=== PATIENT | male | born 1940 | race Caucasian/White ===

== ENCOUNTER 2017-11-20 16:47 | Inpatient (IN) ==
[2017-11-20] MEDS ORDERED: guaiFENesin/DM ER 600-30 MG TABLET PO PRN (17:03)
[2017-11-20] MEDS ORDERED: POTASSIUM CHLORIDE 20 MEQ TABLET PO PRN (17:03)
[2017-11-20] MEDS ORDERED: ACETAMINOPHEN 325 MG TABLET PO PRN (17:03)
[2017-11-20] MEDS ORDERED: ONDANSETRON 4 MG/2 ML VIAL IV PRN (17:03)
[2017-11-20] MEDS ORDERED: BISACODYL 5 MG TABLET PO PRN (17:03)
[2017-11-20] MEDS ORDERED: MAGNESIUM SULF RIDER 4 GM in PREMIX 1 EACH IV PRN (17:03)
[2017-11-20] MEDS ORDERED: MAGNESIUM SULF RIDER 2 GM in PREMIX 1 EACH IV PRN (17:03)
[2017-11-20] MEDS ORDERED: ZALEPLON 5 MG CAPSULE PO PRN (17:03)
[2017-11-20] MEDS ORDERED: NITROGLYCERIN SL 0.4 MG TABLET SL PRN (17:09)
[2017-11-20 21:42] LABS: Basophils % 0.6 % (0.0-0.8); Eosinophils # 0.3 10*3/uL (0.0-0.87); Eosinophils % 4.4 % (0.00-10.9); Hematocrit 35.1 VOL% (42.0-52.0); Hemoglobin 11.4 GM/DL (14.0-18.0); Immature Granulocytes % 0.3 %; Immature Granulocytes Absolute 0.02 #; Lymphocytes # 1.8 10*3/uL (1.4-4.0); Mean Corpuscular HGB Conc 32.5 GM/DL (32-36); Mean Corpuscular Hemoglobin 30 PG (27-34); Mean Corpuscular Volume 91.9 FL (87-102); Mean Platelet Volume 10.5 FL (9.6-12.0); Monocytes # 0.6 10*3/uL (0.11-0.8); Monocytes % 8.7 % (1.7-12.7); Neutrophils # 3.8 10*3/uL (1.4-7.4); Platelet Count 160 T/CUMM (130-400); Red Blood Count 3.82 MC/CUMM (3.8-5.5); Red Cell Distribution Width 14.6 % (9.3-17.3); White Blood Count 6.6 T/CUMM (4-12)
[2017-11-20] MEDS: INSULIN REGULAR 100 UNIT/ML SUBCUT SCH (21:44)
[2017-11-20 21:52] LABS: PT Patient Result 10.4 SECS; Partial Thromboplastin Time 26.3 SECS (0-40)
[2017-11-20 22:07] LABS: Alanine Aminotransferase 21 U/L (16-61); Albumin 3.2 G/DL (3.4-5.0); Alkaline Phosphatase 105 U/L (45-117); Aspartate Amino Transferase 12 U/L (0-37); Bilirubin,Total < 0.39 MG/DL (0.2-1.0); Blood Urea Nitrogen 34 MG/DL (7-18); Calcium 8.8 MG/DL (8.5-10.1); Glucose 278 MG/DL (74-106); Osmolality,Calculated 296.4 MOS/KG (273-304); Potassium 4.7 MMOL/L (3.5-5.1); Sodium 140 MMOL/L (136-145); Total Protein 5.9 G/DL (6.4-8.3)
[2017-11-21 06:14] LABS: Basophils % 0.6 % (0.0-0.8); Eosinophils # 0.4 10*3/uL (0.0-0.87); Eosinophils % 5.9 % (0.00-10.9); Hematocrit 34.6 VOL% (42.0-52.0); Hemoglobin 11.7 GM/DL (14.0-18.0); Immature Granulocytes % 0.3 %; Immature Granulocytes Absolute 0.02 #; Lymphocytes # 1.8 10*3/uL (1.4-4.0); Lymphocytes % 28.6 % (21.2-54.2); Mean Corpuscular HGB Conc 33.8 GM/DL (32-36); Mean Corpuscular Hemoglobin 30 PG (27-34); Mean Corpuscular Volume 89.6 FL (87-102); Mean Platelet Volume 11.1 FL (9.6-12.0); Monocytes # 0.6 10*3/uL (0.11-0.8); Monocytes % 9.1 % (1.7-12.7); Neutrophils # 3.5 10*3/uL (1.4-7.4); Neutrophils % 55.5 % (38.7-73.9); Platelet Count 176 T/CUMM (130-400); Red Blood Count 3.86 MC/CUMM (3.8-5.5); Red Cell Distribution Width 14.6 % (9.3-17.3); White Blood Count 6.2 T/CUMM (4-12)
[2017-11-21 06:51] LABS: Calcium 8.9 MG/DL (8.5-10.1); Osmolality,Calculated 290.5 MOS/KG (273-304); Potassium 4.6 MMOL/L (3.5-5.1); Risk Ratio 3.83; VLDL CHOLESTEROL 30.6 MG/DL
[2017-11-21] MEDS ORDERED: ceFAZolin 1,000 MG in SYRINGE 1 EACH IV ONE (07:59)
[2017-11-21] MEDS ORDERED: ceFAZolin 1,000 MG VIAL IRRIG ONE (07:59)
[2017-11-21] MEDS ORDERED: PANTOPRAZOLE 40 MG TABLET PO SCH (09:00)
[2017-11-21] MEDS ORDERED: ASPIRIN EC 81 MG TABLET PO SCH (09:00)
[2017-11-21] MEDS ORDERED: NITROGLYCERIN SL 0.4 MG TABLET SL PRN (09:02)
[2017-11-21] MEDS: INSULIN REGULAR 100 UNIT/ML SUBCUT SCH ×4 (09:04→21:55)
[2017-11-21] MEDS ORDERED: LIDOCAINE 1% 20 ML VIAL ONE (09:32)
[2017-11-21] MEDS ORDERED: HEPARIN/NACL 0.9% 2 UNITS/ML 500 ML IV ONE (09:32)
[2017-11-21] MEDS ORDERED: ceFAZolin 1,000 MG VIAL ONE (09:33)
[2017-11-21] MEDS ORDERED: LABETALOL 20 MG/4 ML SYRINGE IV ONE ×2 (09:54→11:33)
[2017-11-21] MEDS ORDERED: TISSUE ADHESIVE 1 EACH APPLICATOR TOP ONE (10:38)
[2017-11-21] MEDS ORDERED: oxyCODONE/ACETAMINOPHEN 5-325 MG TABLET PO PRN (10:58)
[2017-11-21] MEDS ORDERED: DEXTROSE 50% 25 GM/50 ML VIAL IV PRN (10:58)
[2017-11-21] MEDS ORDERED: GLUCAGON 1 MG VIAL IM PRN (10:58)
[2017-11-21] MEDS ORDERED: PROPOFOL 200 MG/20 ML VIAL IV ONE (11:33)
[2017-11-21] MEDS ORDERED: ePHEDrine 50 MG/ML AMP ONE (11:33)
[2017-11-21] MEDS ORDERED: FUROSEMIDE 20 MG/2 ML VIAL ONE (11:34)
[2017-11-21] MEDS ORDERED: METOPROLOL TARTRATE 5 MG/5 ML VIAL IV ONE (11:34)
[2017-11-21] MEDS ORDERED: ESMOLOL 100 MG/10 ML VIAL IV ONE (11:34)
[2017-11-21] MEDS ORDERED: ETOMIDATE 40 MG/20 ML VIAL IV ONE (11:34)
[2017-11-21] MEDS ORDERED: LACTATED RINGERS 1,000 ML IV ONE (11:34)
[2017-11-21] MEDS ORDERED: INSULIN NPH/REGULAR 70/30 100 UNIT/ML SUBCUT SCH (16:30)
[2017-11-21] MEDS ORDERED: LOVASTATIN 20 MG TABLET PO SCH (16:30)
[2017-11-21] MEDS: ceFAZolin 1,000 MG in SYRINGE 1 EACH IV SCH (18:10)
[2017-11-21] MEDS ORDERED: TERAZOSIN 5 MG CAPSULE PO SCH (21:00)
[2017-11-21] MEDS ORDERED: CETIRIZINE 10 MG TABLET PO SCH (21:00)
[2017-11-21] MEDS: METOPROLOL SUCCINATE XL 25 MG TABLET PO SCH (21:54)
[2017-11-21] MEDS: IRON (CARBONYL) 45 MG TABLET PO SCH (21:55)
[2017-11-21] MEDS: MAGNESIUM CHLORIDE 64 MG TABLET PO SCH (21:55)
[2017-11-21] MEDS: FAMOTIDINE 20 MG TABLET PO SCH (21:55)
[2017-11-22] MEDS: ceFAZolin 1,000 MG in SYRINGE 1 EACH IV SCH (01:14)
[2017-11-22 05:24] LABS: Basophils % 0.5 % (0.0-0.8); Eosinophils # 0.3 10*3/uL (0.0-0.87); Eosinophils % 3.1 % (0.00-10.9); Hematocrit 34.2 VOL% (42.0-52.0); Hemoglobin 11.5 GM/DL (14.0-18.0); Immature Granulocytes % 0.6 %; Immature Granulocytes Absolute 0.05 #; Lymphocytes # 1.5 10*3/uL (1.4-4.0); Lymphocytes % 17.6 % (21.2-54.2); Mean Corpuscular HGB Conc 33.6 GM/DL (32-36); Mean Corpuscular Hemoglobin 30 PG (27-34); Mean Corpuscular Volume 89.5 FL (87-102); Mean Platelet Volume 10.6 FL (9.6-12.0); Monocytes # 0.8 10*3/uL (0.11-0.8); Monocytes % 9.8 % (1.7-12.7); Neutrophils # 5.7 10*3/uL (1.4-7.4); Neutrophils % 68.4 % (38.7-73.9); Platelet Count 161 T/CUMM (130-400); Red Blood Count 3.82 MC/CUMM (3.8-5.5); Red Cell Distribution Width 14.7 % (9.3-17.3); White Blood Count 8.3 T/CUMM (4-12)
[2017-11-22 06:02] LABS: Calcium 8.7 MG/DL (8.5-10.1); Osmolality,Calculated 292.3 MOS/KG (273-304); Potassium 4.1 MMOL/L (3.5-5.1)
[2017-11-22] MEDS ORDERED: INSULIN NPH/REGULAR 70/30 100 UNIT/ML SUBCUT SCH (07:30)
[2017-11-22 08:00] VITALS: BP 119/65
[2017-11-22] MEDS ORDERED: VENLAFAXINE XR 37.5 MG CAPSULE PO SCH (09:00)
[2017-11-22] MEDS ORDERED: ASPIRIN EC 325 MG TABLET PO SCH (09:00)
[2017-11-22] MEDS ORDERED: ALLOPURINOL 100 MG TABLET PO SCH (09:00)
[2017-11-22] MEDS ORDERED: CLOPIDOGREL 75 MG TABLET PO SCH (09:00)
[2017-11-22] MEDS: METOPROLOL SUCCINATE XL 25 MG TABLET PO SCH (09:40)
[2017-11-22] MEDS: FAMOTIDINE 20 MG TABLET PO SCH (09:40)
[2017-11-22] MEDS: MAGNESIUM CHLORIDE 64 MG TABLET PO SCH (09:40)
[2017-11-22] MEDS: IRON (CARBONYL) 45 MG TABLET PO SCH (09:40)
[2017-11-22] MEDS: INSULIN REGULAR 100 UNIT/ML SUBCUT SCH (09:41)
== END 2017-11-22 12:26 | disposition home or self-care (01) | DRG 227 ==
LOC: N.TELEN 19:43 → INTOOBSV 19:43
PROVIDERS: ADMIT Internal Medicine Clinical Cardiac Electrophysiology; ATTEND Internal Medicine Clinical Cardiac Electrophysiology
PROC: CLDCICD (2017-11-21 10:15)